=== PATIENT | female | born 1990 | race Caucasian/White ===

== ENCOUNTER 2020-06-14 09:54 | Emergency (ER) | payer MEDICAID, SELFPAY ==
[2020-06-14 10:21] VITALS: BP 125/48; PULSE 78; RESP 16; TEMP 36.6; O2SAT 98; BMI 27.6
--- NOTE | 2020-06-14 11:59 | ED.GENADULT ---
HPI - General Adult General Chief complaint: General Medical Stated complaint: covid symptoms Time Seen by Provider: 06/14/20 11:32 History of Present Illness HPI narrative: Complains of sore throat getting worse for the last 2-3 days, no fever no chills no dizziness no weakness no cough, no difficulty breathing or swallowing but there is pain on swallowing Related Data Previous Rx's Medication Instructions Recorded ibuprofen 600 mg PO Q6H PRN #20 tab 06/14/20 penicillin V potassium 500 mg PO Q12H 10 Days #20 tab 06/14/20 prednisone 60 mg PO ONCE 1 Days #3 tab 06/14/20 Allergies Allergy/AdvReac Type Severity Reaction Status Date / Time No Known Allergies Allergy Unverified 03/14/20 16:16 Review of Systems Review of Systems: Positive for sore throat No fever no chills no dizziness no confusion no difficulty breathing or swallowing no chest pain no shortness of breath no palpitations no abdominal pain no nausea no vomiting no diarrhea no skin rash Yes all other systems are reviewed and are negative PMFSH Past Medical History Source: nursing notes reviewed Medical History (Updated 06/14/20 @ 12:00 by CYNTHIA Connell) No known health problems Social History Social History Advance Directives: No Advance Directives Information Provided: Yes Physical Exam Vital Signs: Vital Signs: Last Vital Signs Temp 97.8 F 06/14/20 10:21 Pulse 78 06/14/20 10:21 Resp 16 06/14/20 10:21 BP 125/48 L 06/14/20 10:21 Pulse Ox 98 06/14/20 10:21 Body Mass Index 27.6 General appearance no acute distress comfortable speaking full sentences The eyes are clear without redness or discharge The sinuses are not congested nontender The pharynx has pharyngeal erythema, but no tonsillar exudate or swelling, uvula is midline, there is no impairment of breathing or swallowing, well-hydrated and voice is normal Respiratory, no respiratory distress, breath sounds are full clear and equal and symmetrical The heart no murmur, rate and rhythm regular Extremities no rash Neuro no focal deficit Course Course Course Narrative: Patient is swabbed for COVID and treated for presumptive strep throat Medical Decision Making Lab Data Labs: Lab Results 06/14/20 Range/Units 12:18 Coronavirus (PCR) NEGATIVE (Negative) SARS-CoV-2 (PCR) Cancelled Influenza Type A (PCR) NEGATIVE (Negative) Influenza Type B (PCR) NEGATIVE (Negative) RSV RNA Qual (PCR) NEGATIVE (Negative) Discharge Plan Discharge Clinical Impression: Pharyngitis Qualifiers: Pharyngitis/tonsillitis etiology: unspecified etiology Qualified Code(s): J02.9 - Acute pharyngitis, unspecified Patient Disposition: Home, Self-Care Additional Instructions: We are treating for possible strep throat with penicillin, prednisone 1 time 1 dose often helps the inflammation and pain of a sore throat Return any time any worse condition or concerns Your COVID test will be back in 1-3 days and we will call you Prescriptions: New penicillin V potassium 500 mg tablet 500 mg PO Q12H 10 Days Qty: 20 RF: 0 ibuprofen 600 mg tablet 600 mg PO Q6H PRN (Reason: pain) Qty: 20 RF: 0 prednisone 20 mg tablet 60 mg PO ONCE 1 Days Qty: 3 RF: 0 Stand Alone Forms: Work/School Release Interventions: ED Discharge Assessment Last Done: 06/14/20 12:18 Discharge Date/Time: 06/14/20 12:19
[2020-06-14 13:24] LABS: Influenza A PCR NEGATIVE (Negative); Influenza B PCR NEGATIVE (Negative); Resp Syncy Virus RNA Qual PCR NEGATIVE (Negative); SARS COV2 PCR INHOUSE NEGATIVE (Negative)
== END 2020-06-14 12:19 | disposition home or self-care (01) ==
PROVIDERS: Physician Assistant Medical; Emergency Provider Emergency Medicine Emergency Medical Services
DX: J02.9 Acute pharyngitis, unspecified (principal); Z20.828 Contact with and (suspected) exposure to other viral communicable diseases
CPT/HCPCS: 0241U; 99283; U0003

== ENCOUNTER 2020-08-30 16:18 | Emergency (ER) | payer OTHER, MEDICAID, SELFPAY ==
[2020-08-30 16:22] VITALS: BP 146/77; PULSE 99; RESP 16; TEMP 36.9; O2SAT 99; BMI 25.7
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
== END 2020-08-30 17:04 | disposition home or self-care (01) ==
PROVIDERS: Emergency Provider Internal Medicine; PCP Family Medicine
DX: S13.4XXA Sprain of ligaments of cervical spine, initial encounter (principal); V43.52XA Car driver injured in collision with other type car in traffic accident, initial encounter; Y93.89 Activity, other specified; Y92.414 Local residential or business street as the place of occurrence of the external cause; Y99.8 Other external cause status
CPT/HCPCS: 99283

== ENCOUNTER → 2020-09-10 10:43 | Outpatient (BNVA) | payer OTHER, SELFPAY | PROVIDERS: PCP Family Medicine; Visit Provider Physician Assistant | DX: M54.2 Cervicalgia (principal); S16.1XXA Strain of muscle, fascia and tendon at neck level, initial encounter; V89.2XXA Person injured in unspecified motor-vehicle accident, traffic, initial encounter | CPT/HCPCS: 99203 ==

== ENCOUNTER 2020-10-11 12:00 | Outpatient (RCR) | payer OTHER, MEDICAID, SELFPAY ==
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
== END 2020-10-11 12:54 | disposition other institution (70) ==
LOC: HO.PT 12:00
PROVIDERS: PCP Family Medicine; Visit Provider Physician Assistant
DX: M54.2 Cervicalgia (principal); M54.9 Dorsalgia, unspecified
CPT/HCPCS: 97110; 97161

== ENCOUNTER 2020-10-27 10:08 | Emergency (ER) | payer MEDICAID, SELFPAY ==
[2020-10-27 11:11] VITALS: BP 134/70; PULSE 98; RESP 18; TEMP 36.6; O2SAT 97; BMI 29.2
--- NOTE | 2020-10-27 12:54 | ED.GENADULT ---
HPI - General Adult General Chief complaint: General Medical Stated complaint: sore throat Time Seen by Provider: 10/27/20 12:17 Source: patient Mode of arrival: ambulatory Limitations: no limitations History of Present Illness HPI narrative: States sore throat for past 4 days like her previous strep infection. States she gets regular COVID tests and they were all negative. Denies any recent travel or sick contacts. States this feels similar to her strep couple years ago and at that time had a negative rapid. She otherwise denies any difficulty breathing, neck swelling, fever. Onset (ago): day(s) (4) Radiation: non-radiation Severity: moderate Quality: aching Pain Consistency: intermittent Relieving factors: none Exacerbating factors: none Associated symptoms: denies other symptoms Treatments prior to arrival: none Related Data Previous Rx's Medication Instructions Recorded ibuprofen 600 mg PO Q6H PRN #20 tab 06/14/20 penicillin V potassium 500 mg PO Q12H 10 Days #20 tab 06/14/20 prednisone 60 mg PO ONCE 1 Days #3 tab 06/14/20 cyclobenzaprine 10 mg PO TID PRN #8 tab 08/30/20 ibuprofen 600 mg PO Q8H PRN #20 tab 08/30/20 lidocaine [Lidoderm] 1 patch TOPICAL DAILY #15 ea 08/30/20 ibuprofen 800 mg PO Q8H PRN #14 tab 10/27/20 penicillin V potassium 500 mg PO BID 10 Days #20 tab 10/27/20 Allergies Allergy/AdvReac Type Severity Reaction Status Date / Time No Known Allergies Allergy Verified 10/27/20 11:13 Review of Systems Review of Systems: Constitutional: No Weight loss, No Fever, No Chills, No Night Sweats, No Fatigue, No Malaise ENT/Mouth: No Hearing loss, No Ear Pain, No Nasal Congestion, No Sinus Pain, No Hoarseness, + sore throat, No Rhinorrhea, No Swallowing Difficulty Eyes: No Eye Pain, No Swelling, No Redness, No Foreign Body, No Discharge, No Vision Changes Cardiovascular: No Chest Pain, No SOB, No Dyspnea on Exertion, No Orthopnea, No Edema, No Palpitations Respiratory: No Cough, No Sputum, No Wheezing, No Smoke Exposure, No Dyspnea Gastrointestinal: No Nausea, No Vomiting, No Diarrhea, No Constipation, No abdominal Pain, No Hematochezia, No Melena Genitourinary: No Dysuria, No Urinary Frequency, No Hematuria, No Urinary Incontinence, No Urgency, No Flank Pain, No Urinary Flow Changes, No Hesitancy Musculoskeletal: No joint pain, No Myalgias, No Joint Swelling Skin: No Skin Lesions, No rash Neuro: No Weakness, No Numbness, No Paresthesias, No Loss of Consciousness, No Dizziness, No Headache Psych: No Social Issues Heme/Lymph: No Bruising, No Bleeding,No Lymphadenopathy Endocrine: No Polyuria, No Polydipsia, No Temperature Intolerance Yes all other systems are reviewed and are negative [facility] Past Medical History Medical History No known health problems Social History Social History Smoking Status: Current every day smoker Advance Directives: No Advance Directives Information Provided: No Physical Exam Vital Signs: Vital Signs: Last Vital Signs Temp 97.8 F 10/27/20 11:11 Pulse 98 10/27/20 11:11 Resp 18 10/27/20 11:11 BP 134/70 10/27/20 11:11 Pulse Ox 97 10/27/20 11:11 Body Mass Index 29.2 Reviewed Const: General: cooperative and healthy appearing; No acute distress or intoxicated appearing Nutritional Appearance: average body habitus Orientation/consciousness: patient oriented x3 HENMT: Head: Yes normal to inspection Ears: hearing grossly normal bilaterally Mouth: Normal oral and palatal mucosa present, lip normal and moist mucous membranes Teeth and gingiva: dentition normal Throat: Yes abnormal tonsil (Bilateral 1+ with exudate, 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.) Eyes: General: appearance normal, both eyes and all related structures Visual Chua: normal visual chua by confrontation Neck: Neck: Yes normal visual inspection, No positive Brudzinski's sign, No positive Kernig's sign and No tender Thyroid: Thyroid normal Chest: Chest palpation & inspection: normal inspection of the chest Resp: Effort & Inspection: normal respiratory effort Cardio: Jugular venous distension: no JVD GI: Inspection: Yes normal to inspection Percussion: Yes normal to percussion Auscultation: normal bowel sounds : General: Yes no CVA tenderness Back/Spine/Pelvis: Back: no CVA tenderness Skin: General skin exam: no rashes or lesions noted Neuro: General: patient oriented x3 Extrem: General: Yes normal to inspection Course Course Course Narrative: Exam consistent with strep pharyngitis with the empirically treat her. Does not want to wait for the results of her rapid strep and COVID would like to be called. Medical Decision Making Lab Data Labs: Lab Results 10/27/20 Range/Units 12:25 Coronavirus (PCR) NEGATIVE (Negative) Influenza Type A (PCR) NEGATIVE (Negative) Influenza Type B (PCR) NEGATIVE (Negative) RSV RNA Qual (PCR) NEGATIVE (Negative) Discharge Plan Discharge Clinical Impression: Pharyngitis Patient Disposition: Home, Self-Care Instructions: Strep Throat (ED) Additional Instructions: Salt water gargle Throat lozenges Push fluids Tylenol or ibuprofen [id number] per label instructions for pain discomfort Luce diet Take antibiotics as prescribed Your rapid strep test is pending fine your COVID-19 test is pending Isolate/quarantine and home care instructions reviewed Will call you with the strep and COVID-19 results within next 2 hours Thank you Prescriptions: New penicillin V potassium 500 mg tablet 500 mg PO BID 10 Days Qty: 20 RF: 0 ibuprofen 800 mg tablet 800 mg PO Q8H PRN (Reason: pain) Qty: 14 RF: 0 No Action penicillin V potassium 500 mg tablet 500 mg PO Q12H 10 Days Qty: 20 RF: 0 ibuprofen 600 mg tablet 600 mg PO Q6H PRN (Reason: pain) Qty: 20 RF: 0 prednisone 20 mg tablet 60 mg PO ONCE 1 Days Qty: 3 RF: 0 cyclobenzaprine 10 mg tablet 10 mg PO TID PRN (Reason: muscle spasm) Qty: 8 RF: 0 ibuprofen 600 mg tablet 600 mg PO Q8H PRN (Reason: pain) Qty: 20 RF: 0 lidocaine [Lidoderm] 5 % adhesive patch,medicated 1 patch topical DAILY Qty: 15 RF: 0 Referrals: Gila Edge MD [Primary Care Provider] - 1 week Stand Alone Forms: Work/School Release Interventions: ED Discharge Assessment Last Done: 10/27/20 13:03 Discharge Date/Time: 10/27/20 13:05
[2020-10-27 14:30] LABS: Influenza A PCR NEGATIVE (Negative); Influenza B PCR NEGATIVE (Negative); Resp Syncy Virus RNA Qual PCR NEGATIVE (Negative); SARS COV2 PCR INHOUSE NEGATIVE (Negative)
== END 2020-10-27 13:05 | disposition home or self-care (01) ==
PROVIDERS: Physician Assistant Medical; Emergency Provider Emergency Medicine; PCP Family Medicine
DX: J02.9 Acute pharyngitis, unspecified (principal); Z20.822 Contact with and (suspected) exposure to COVID-19; F17.200 Nicotine dependence, unspecified, uncomplicated
CPT/HCPCS: 0241U; 36415; 87071; 87880; 99283

== ENCOUNTER 2021-01-06 17:19 | Emergency (ER) | payer OTHER, MEDICAID, SELFPAY ==
[2021-01-06 18:58] VITALS: BP 144/78; PULSE 87; RESP 18; TEMP 37.2; O2SAT 99; BMI 29.2
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
== END 2021-01-06 20:23 | disposition home or self-care (01) ==
PROVIDERS: Emergency Provider Emergency Medicine; PCP Family Medicine
DX: Z04.1 Encounter for examination and observation following transport accident (principal); M54.2 Cervicalgia
CPT/HCPCS: 99283; 99284